=== PATIENT | male | born 1985 | race Caucasian/White ===

== ENCOUNTER 2017-08-27 18:41 | Emergency (ER) | payer OTHER ==
[2017-08-27 19:06] VITALS: RESP 16
[2017-08-27] MEDS ORDERED: KETOROLAC 30 MG/1 ML SDV IVP ONE (19:53)
[2017-08-27] MEDS ORDERED: OXYCODONE/APAP 5/325 TAB PO ONE (19:53)
--- NOTE | 2017-08-27 19:57 | EDPHY ---
H & P Stated Complaint: felt a pop in lower back carrying a piano Time Seen by Provider: 08/27/17 19:20 HPI/ROS: CHIEF COMPLAINT: acute low back pain HISTORY OF PRESENT ILLNESS: 32-year-old male arrives via private vehicle complaining of acute right paraspinous lumbar back pain. 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 No radiculopathy. No saddle anesthesia. No incontinence or retention. No foot drop. No direct trauma or fall. No prior history of injury. Incident occurred approximately 1300 hours today. Currently pain is reproducible with range of motion. No abdominal pain. No recent illness. No fever no chills. No flu-like symptoms. 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 Appears uncomfortable specially when asked to move 2) HEAD: Normocephalic, atraumatic 3) HEENT: Pupils equal, round, reactive to light bilaterally. Sclera anicteric. Nasopharynx, oropharynx, clear, no lesions. 4) NECK: Full range of motion, no meningeal signs. 5) LUNGS: Clear auscultation bilaterally, no wheezes, no rhonchi, no retractions. 6) HEART: Regular rate and rhythm, no murmur, no heave, no gallop. 7) ABDOMEN: No guarding, no rebound, no focal tenderness, negative McBurney's, negative Guo's, negative Rovsing's, negative peritoneal sign, 8) MUSCULOSKELETAL: Moving all extremities, no focal areas of tenderness, no obvious trauma. No peripheral edema or discoloration. 9) BACK: tender to palpation paraspinous muscle. Positive straight leg lift test bilaterally. No CVA tenderness, no midline vertebral tenderness, no fluctuance, no step-off, no obvious trauma, no visual or palpable abnormality. Patella, Achilles reflexes intact to bilateral strength 5/5 10) SKIN: No rash, no petechiae. 11) NEURO: Awake, alert, and oriented to person, place and time. Answers questions appropriately. There were no obvious focal neurologic abnormalities. No cerebellar dysfunction. Normal steady gait. Upper and lower extremities bilaterally with strength 5 / 5, reflexes 2+.. DIFFERENTIAL DIAGNOSIS: [In no particular order, including but not limited to, fracture, sprain/strain, cauda equina, spinal infectious etiology. MEDICAL DECISION MAKING The patient was re-evaluated with serial examinations. He is given trigger- point injections emergency department felt temporarily moderation of his pain. He is also given oral medications and intramuscular Toradol. He remains with with normal neurologic examination lower extremities, no radiculopathy, no saddle anesthesia, no incontinence no retention. Lower index of suspicion for cauda equina, epidural abscess, epidural hematoma, lumbar myositis, diskitis, as the patient is neurologically intact in the lower extremities, has patella and Achilles reflexes intact and equal bilaterally, has no neurologic deficits, no incontinence, no retention, no midline pain, no fluctuance, afebrile, no flulike symptoms. Pain may be secondary to muscular strain, may be secondary to discogenic etiology. At this point I do not identify definitive indication for emergent MRI, however patient may necessitate this on an outpatient basis. Patient given acute back pain precautions. Patient verbalizes understanding of discharge instructions. I believe them be competent decision-makers. All questions and concerns have been addressed by me. Ample opportunity for questions have been provided . The patient understands that this diagnosis is provisional and can never be 100% accurate. Usual and customary warnings were given concerning the clinical impression and all the patient's questions were answered. The patient was instructed to return to the emergency department should her symptoms worsen or return, or develop any new symptoms, otherwise to followup as directed in discharge instructions. - Personal History Current Tetanus Diphtheria and Acellular Pertussis (TDAP): Yes - Medical/Surgical History Hx Asthma: No Hx Chronic Respiratory Disease: No Hx Diabetes: No Hx Cardiac Disease: No Hx Renal Disease: No Hx Cirrhosis: No Hx Alcoholism: No Hx HIV/AIDS: No Hx Splenectomy or Spleen Trauma: No Other PMH: none - Social History Smoking Status: Current every day smoker Constitutional: Initial Vital Signs Temperature (C) 37 C 08/27/17 19:04 Heart Rate 87 08/27/17 19:04 Respiratory Rate 16 08/27/17 19:04 Blood Pressure 129/84 H 08/27/17 19:04 O2 Sat (%) 98 08/27/17 19:04 O2 Delivery Mode Room Air Allergies/Adverse Reactions: No Known Allergies Allergy (Unverified 08/27/17 19:04) Home Medications: Medication Instructions Recorded Cyclobenzaprine [Flexeril 10 MG 10 mg PO TID #15 tab 08/27/17 (RX)] Hydrocodone/APAP 5/325 [Sarepta 1 tab PO Q6 PRN #15 tab 08/27/17 5/325 (RX)] Medical Decision Making Procedures: Procedure: Trigger point injection Indications: Focal tenderness at the right paraspinous lumbar region Indications risks benefits discussed with patient. Using 0.5% plain bupivacaine on a 27 gauge needle that was introduced into the muscle, multiple injections were fanned. Patient tolerated procedure well. - Data Points Medications Given: Discontinued Medications Cyclobenzaprine HCl (Flexeril 10 Mg Prepack#3) 1 btl TAKEHOME EDNOW ONE Stop: 08/27/17 20:36 Last Admin: 08/27/17 20:48 Dose: 1 btl Cyclobenzaprine HCl (Flexeril) 10 mg PO EDNOW ONE Stop: 08/27/17 20:37 Last Admin: 08/27/17 20:48 Dose: 10 mg Ketorolac Tromethamine (Toradol) 30 mg IVP EDNOW ONE Stop: 08/27/17 19:54 Last Admin: 08/27/17 20:10 Dose: 30 mg Oxycodone/Acetaminophen (Percocet 5/325) 2 tab PO EDNOW ONE Stop: 08/27/17 19:54 Last Admin: 08/27/17 20:08 Dose: 2 tab Oxycodone/Acetaminophen (Percocet 5/325mg Prepack#4) 1 btl TAKEHOME EDNOW ONE Stop: 08/27/17 20:36 Last Admin: 08/27/17 20:49 Dose: 1 btl Departure - Departure Disposition: Home, Routine, Self-Care Clinical Impression: Acute low back pain Qualifiers: Back pain laterality: right Sciatica presence: without sciatica Qualified Code( s): M54.5 - Low back pain Condition: Good Instructions: Hydrocodone/Acetaminophen (By mouth), Cyclobenzaprine (By mouth) , Low Back Strain (ED) Additional Instructions: Seek medical attention if you develop new or worsening pain, if you develop bladder or bowel dysfunction, numbness around your perineum, foot drop, or any other symptoms that concern you. Referrals: Torin Machado MD [Medical Doctor] - As per Instructions Stand Alone Forms: Work Comp Follow Up Prescriptions: Cyclobenzaprine [Flexeril 10 MG (RX)] 10 mg PO TID #15 tab Hydrocodone/APAP 5/325 [Sarepta 5/325 (RX)] 1 tab PO Q6 PRN #15 tab PRN Reason: Pain, Severe
[2017-08-27] MEDS ORDERED: CYCLOBENZAPRINE 10MG PREPACK#3 BTL TAKEHOME ONE (20:35)
[2017-08-27] MEDS ORDERED: OXYCODONE/APAP 5/325MG PREPACK#4 BTL TAKEHOME ONE (20:35)
[2017-08-27] MEDS ORDERED: CYCLOBENZAPRINE 10 MG TAB PO ONE (20:36)
[2017-08-27 21:12] VITALS: BP 134/75; PULSE 78; TEMP 98.1; O2SAT 97
== END 2017-08-27 21:14 | disposition home or self-care (01) ==
PROC: 3E023GC Introduction of Other Therapeutic Substance into Muscle, Percutaneous Approach (ICD-10-PCS; principal; 2017-08-27)
DX: M54.5 Low back pain (principal); F17.200 Nicotine dependence, unspecified, uncomplicated
CPT/HCPCS: 96374; J1885